=== PATIENT | male | born 1990 | race Caucasian/White ===

== ENCOUNTER 2018-03-17 16:29 | Emergency (ER) | payer SELFPAY ==
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
[2018-03-17 16:53] LABS: PLATELET COUNT 255 10^3/uL (150-400)
[2018-03-17] MEDS ORDERED: SKIN ADHESIVE (DERMABOND) 1 EACH TP ONE (18:18)
[2018-03-17 18:55] VITALS: BP 109/82
== END 2018-03-17 18:56 | disposition home or self-care (01) ==
PROC: 0HQ1XZZ Repair Face Skin, External Approach (ICD-10-PCS; principal; 2018-03-17)
DX: S02.612B Fracture of condylar process of left mandible, initial encounter for open fracture (principal); F17.200 Nicotine dependence, unspecified, uncomplicated; S01.81XA Laceration without foreign body of other part of head, initial encounter; W09.1XXA Fall from playground swing, initial encounter; Y99.8 Other external cause status; Y93.89 Activity, other specified
CPT/HCPCS: 96374; G0480; J2270